=== PATIENT | female | born 1970 ===

== ENCOUNTER → 2019-07-12 | Outpatient (CLI) | payer OTHER ==
[~2019-07-12] MED LIST: CIPRO500 MG PO; CODE1TAB37 PO; LEVSIN/SL0.125 MG PO; SYNTHROID137 MCG PO
== END | disposition home or self-care (01) ==
LOC: TOM 07:33
PROVIDERS: ATTEND Internal Medicine Endocrinology, Diabetes & Metabolism
DX: R51 Headache (principal); E03.8 Other specified hypothyroidism; E04.2 Nontoxic multinodular goiter; Z68.26 Body mass index [BMI] 26.0-26.9, adult; E55.9 Vitamin D deficiency, unspecified

== ENCOUNTER → 2019-12-11 | Outpatient (CLI) | payer OTHER | END | disposition home or self-care (01) | LOC: MAMO-SONO 07:03 | DX: Z12.31 Encounter for screening mammogram for malignant neoplasm of breast (principal) ==

== ENCOUNTER 2021-01-10 06:44 | Outpatient (CLI) | payer OTHER | END 2021-01-10 07:00 | disposition home or self-care (01) | LOC: SONOGRAMA 06:44 | PROVIDERS: ATTEND Internal Medicine Endocrinology, Diabetes & Metabolism | DX: E06.5 Other chronic thyroiditis (principal); E03.8 Other specified hypothyroidism ==

== ENCOUNTER 2021-02-20 09:55 | Outpatient (CLI) | payer OTHER | END 2021-02-20 09:57 | disposition home or self-care (01) | LOC: SONOGRAMA 09:55 | PROVIDERS: ATTEND Pathology Anatomic Pathology & Clinical Pathology | DX: E04.2 Nontoxic multinodular goiter (principal) ==

== ENCOUNTER 2022-07-22 07:17 | Outpatient (CLI) | payer OTHER | END 2022-07-22 09:01 | disposition home or self-care (01) | LOC: MAMO-SONO 07:17 | PROVIDERS: ATTEND Obstetrics & Gynecology Gynecology | DX: N60.11 Diffuse cystic mastopathy of right breast (principal); N60.12 Diffuse cystic mastopathy of left breast; Z12.31 Encounter for screening mammogram for malignant neoplasm of breast ==

== ENCOUNTER 2023-04-14 08:43 | Outpatient (CLI) | payer OTHER | END 2023-04-14 09:20 | disposition home or self-care (01) | LOC: SONOGRAMA 08:43 | PROVIDERS: ATTEND Internal Medicine Endocrinology, Diabetes & Metabolism | DX: E03.8 Other specified hypothyroidism (principal); E04.2 Nontoxic multinodular goiter ==